=== PATIENT | female | born 2000 | race Asian ===

== ENCOUNTER 2024-05-19 14:39 | Emergency (ER) | payer OTHER, SELFPAY ==
[2024-05-19 14:53] VITALS: BP 131/91
--- NOTE | 2024-05-19 14:53 | ED.GENMED ---
ED Provider Triage
<Freda Mora PA-C - Last Filed: 05/19/24 14:57>
-
Patient seen by provider in Triage?: Seen in Triage
Attestation: A medical screening examination has been initiated by a qualified medical provider. Based on the assessment performed at this time, it has been determined that an emergent medical condition may exist and the patient has been informed
that further medical evaluation and possible additional diagnostic testing may be needed.
HPI: 24yoF here with vaginal bleeding x 8 weeks. Saw OBGYN in [place] in beginning of April and started on OCPs. Using 3-4 tampons/day. C/o generally weak and increased sleepiness.
GENERAL: Alert , in no apparent distress
EYE: No visual abnormalities.
NECK: Trachea midline
ENT: No visible abnormalities.
LUNGS: No acute respiratory distress
NEUROLOGICAL: Alert and oriented
SKIN: Skin intact. No visible changes.
MUSCULOSKELETAL: Moving extremities normally
PSYCH: Normal and appropriate interaction.
This is a medical evaluation conducted in person to initiate diagnostic evaluation and provide initial therapeutics. Please see further documentation by the treating clinician.
CBC, CMP, HCG, and pelvic ultrasound ordered.
History of Present Illness
<Freda Mora PA-C - Last Filed: 05/19/24 14:57>
General
Chief Complaint: Vaginal Bleeding
Time Seen by Provider: 05/19/24 17:06
<Sterling Freed DO - Last Filed: 05/19/24 19:40>
History of Present Illness
History of Present Illness:
TIME OF INITIAL ENCOUNTER: 5:10 PM
HPI: The patient has been having vaginal bleeding described initially as using 3-4 tampons per day over the past 2 months. She only had about 2 days where she did not bleed. About a month ago, she was placed on control by a profiler hand in
[facility] where she attends [facility] [employer]. She continues to bleed. There is some minimal abdominal cramping. She continues to feel generally weak and sleeps a lot but this is not necessarily new.
EXAM:
GENERAL: Well appearing in no distress
HEENT: Moist oral mucosa
CARDIOVASCULAR: No murmurs, normal heart rate, regular rhythm, No chest wall tenderness
PULMONARY: No respiratory distress, breath sounds are clear and equal
ABDOMEN: Soft with no peritoneal signs, no tenderness
NEUROLOGIC: Excellent strength all extremities, no coordination deficits
PSYCHIATRIC: Appropriate mental status, normal insight and judgement
EXTREMITIES: Nontender, no edema, moves all extremities equally
SKIN: No rash, no lesions
NUMBER AND COMPLEXITY OF PROBLEMS ADDRESSED AT THE ENCOUNTER
� Chronic conditions affecting care: No significant past medical history
� Acute Exacerbation and/or Progression of Chronic Illness: This is an acute problem
� Differential Diagnosis includes: Dysfunctional uterine bleeding, uterine fibroids, , anemia
AMOUNT AND/OR COMPLEXITY OF DATA TO BE REVIEWED AND ANALYZED
� I performed an independent evaluation of and my interpretation is:
EKG:
CT:
X-rays:
Laboratory Studies: White count 6.5, hemoglobin 13.1 which is improved compared to 2018, hCG negative
Other: US reviewed
� Review of other/old records: The patient was seen here in 2018 with suicidal ideation/depression
� Clinical information was obtained by an independent historian: I spoke to mother at bedside
� Prescriptions/Medications Considered but not given: The patient is already on control
� Further testing considered but not performed:
RISK OF COMPLICATIONS AND/OR MORBIDITY OR MORTALITY OF PATIENT MANAGEMENT
� Social determinants of health affecting care: Attends school in [place], visiting home currently
� Discussion with other providers:
� Escalation of care including admission/observation vs risk of discharge considered: The patient had ultrasound today. Hemoglobin today is improved compared to 2018. Vital signs are stable and she is very well-appearing.
ANY OTHER UPDATES:
No changes throughout her stay in the Emergency Department. She states that she can follow-up with her profiler hand in [place]. I gave her a copy of her ultrasound.
Phy Exam
<Sterling Freed DO - Last Filed: 05/19/24 19:40>
Physical Exam
Physical Exam:
See HPI
Course
<Freda Mora PA-C - Last Filed: 05/19/24 14:57>
Orders/Labs/Results
Orders:
Orders
05/19/24 14:56
Test Result ONCE
Pelvis & Transvaginal US [US Pelvis W Transvag Combined] Urgent
Comment:
Reason For Exam: Vaginal bleeding
05/19/24 15:01
Complete Blood Count/With Diff Urgent
Comprehensive Metabolic Panel Urgent
HCG, Serum Qualitative Screen Urgent
Abnormal Lab Results
05/19/24
15:01
Lymphocytes % 19.7 L %
(20.5-51.1)
Glucose 112 H mg/dl
(70-99)
05/19/24 15:01
05/19/24 15:01
Vital Signs
Initial and Last Documented VS:
Initial Vital Signs
Temp Pulse Resp BP Pulse Ox
37.1 C 76 16 131/91 99
05/19/24 14:53 05/19/24 14:53 05/19/24 14:53 05/19/24 14:53 05/19/24 14:53
Last Documented Vital Signs
Temp Pulse Resp BP Pulse Ox
36.4 C 76 16 131/82 99
05/19/24 18:05 05/19/24 18:05 05/19/24 18:05 05/19/24 18:05 05/19/24 18:05
<Sterling Freed DO - Last Filed: 05/19/24 19:40>
Orders/Labs/Results
Orders:
Orders
05/19/24 14:56
Test Result ONCE
Pelvis & Transvaginal US [US Pelvis W Transvag Combined] Urgent
Comment:
Reason For Exam: Vaginal bleeding
05/19/24 15:01
Complete Blood Count/With Diff Urgent
Comprehensive Metabolic Panel Urgent
HCG, Serum Qualitative Screen Urgent
Abnormal Lab Results
05/19/24
15:01
Lymphocytes % 19.7 L %
(20.5-51.1)
Glucose 112 H mg/dl
(70-99)
05/19/24 15:01
05/19/24 15:01
Vital Signs
Initial and Last Documented VS:
Initial Vital Signs
Temp Pulse Resp BP Pulse Ox
37.1 C 76 16 131/91 99
05/19/24 14:53 05/19/24 14:53 05/19/24 14:53 05/19/24 14:53 05/19/24 14:53
Last Documented Vital Signs
Temp Pulse Resp BP Pulse Ox
36.4 C 76 16 131/82 99
05/19/24 18:05 05/19/24 18:05 05/19/24 18:05 05/19/24 18:05 05/19/24 18:05
<Sterling Freed DO - Last Filed: 05/19/24 19:40>
*Critical Care Note
Total Time (30-74mins, 75-104mins- exclusive of procedures): Not Applicable
ED Attending Note
<Freda Mora PA-C - Last Filed: 05/19/24 14:57>
-
Portions of this chart may have been created with voice recognition software.� Occasional wrong word or��sound alike� substitutions may have occurred due to the inherent limitations of voice recognition software.
Discharge Plan
Departure
Patient Disposition: Home (Routine Discharge)
Date of Disposition: 05/19/24
Time of Disposition: 18:36
Patient with high blood pressure during this ER visit?: Yes
Discharge Problem:
Abnormal vaginal bleeding
Instructions: Heavy Periods (DC), BLOOD PRESSURE
Prescriptions:
No Action
No Current Medications
0
Referrals:
Denis Estrella, [Family Provider] -
Activity Restrictions/Additional Instructions:
. Hemoglobin level is normal, test is negative, other basic labs are normal. I have attached the ultrasound report:
FINDINGS:
Uterus: 8.2 x 3.4 x 4.3 cm. No focal uterine mass.
Endometrium: 7.4 mm. Mild diffuse inhomogeneity, though without focal hyper or hypoechoic abnormality.
Right ovary: 2.1 x 1.3 x 1.7 cm. Unremarkable.
Left ovary: Only seen on transabdominal approach, unremarkable, 2.4 x 2 x 1.8 cm.
Free pelvic fluid: None.
IMPRESSION:
No endometrial thickening. The endometrium measures 7.4 mm, though appears mild diffusely inhomogeneous without focal hyper or hypoechoic abnormality. No uterine mass. Unremarkable ovaries.
Follow-up with your profiler hand.
Interventions
Interventions:
*Risk Screen - Suicide Last Done: 05/19/24 14:55
*General Assessment Last Done: 05/19/24 18:05
*Neglect/Abuse Screening Last Done: 05/19/24 14:55
ED- Fall Risk Assessment Last Done: 05/19/24 18:05
*ED COVID-19 Vaccine History Last Done: 05/19/24 18:05
*Nursing Disposition Last Done: 05/19/24 19:19
ED-Female Genitourinary Assessment Last Done: 05/19/24 18:05
Discharge Date and Time
Discharge Date/Time: 05/19/24 19:19
Print Language: BELARUSIAN
[2024-05-19 15:11] LABS: % Basophils 0.6 % (0-2); % Eosinophils 2.2 % (0-6); % Immature Granulocytes 0.3 % (0-0.5); % Lymphocytes 19.7 % (20.5-51.1); % Monocytes 6.2 % (1.7-9.3); Absolute Eosinophils 0.1 10^3/uL (0-0.7); Absolute Lymphocytes 1.3 10^3/uL (1.2-3.4); Absolute Monocytes 0.4 10^3/uL (0.1-0.6); Absolute Neutrophils 4.6 10^3/uL (1.4-6.5); Hematocrit 38.6 % (37.0-47.0); Hemoglobin 13.1 g/dL (12.0-16.0); Mean Corp Hgb Conc. 33.9 g/dL (33.0-37.0); Mean Corpuscular Hgb 30.8 pg (27.0-31.0); Mean Corpuscular Volume 90.6 fL (81.0-99.0); Mean Platelet Volume 8.9 fL (7.4-10.4); Nucleated Red Blood Cells % 0 %; Platelet Count 375 10^3/uL (130-400); Red Blood Cell Count 4.26 10^6/uL (4.20-5.40); White Blood Cell Count 6.5 10^3/uL (4.8-10.8)
[2024-05-19 15:21] LABS: HCG, Serum Qualitative Screen Negative
[2024-05-19 15:25] LABS: ALT (SGPT) 18 U/L (0-35); AST (SGOT) 25 U/L (14-36); Albumin 4.6 g/dl (3.5-5.0); Alkaline Phosphatase 51 U/L (38-126); Blood Urea Nitrogen 13 mg/dl (7-17); Calcium 9.7 mg/dl (8.4-10.2); Carbon Dioxide 23 mmol/L (22-30); Chloride 103 mmol/L (98-107); Glucose 112 mg/dl (70-99); Potassium 4.1 mmol/L (3.5-5.1); Sodium 136 mmol/L (135-145); Total Bilirubin 0.7 mg/dl (0.2-1.3); Total Protein 7.6 g/dl (6.3-8.2); eGFR > 60.00
[2024-05-19 18:05] VITALS: BP 131/82; BMI 19.6
== END 2024-05-19 19:19 | disposition home or self-care (01) ==
LOC: EMR 14:39
PROVIDERS: Physician Assistant; EMERGENCY PHYSICIAN Emergency Medicine; FAMILY PHYSICIAN Family Medicine
DX: N93.9 Abnormal uterine and vaginal bleeding, unspecified (principal); R03.0 Elevated blood-pressure reading, without diagnosis of hypertension
CPT/HCPCS: 99284; 76830; 76856; 80053; 84703; 85025

== ENCOUNTER → 2025-05-17 15:57 | Outpatient (REF) | payer OTHER, SELFPAY | LOC: RAD 15:57 | PROVIDERS: ATTENDING PHYSICIAN Obstetrics & Gynecology; FAMILY PHYSICIAN Family Medicine | DX: Z30.431 Encounter for routine checking of intrauterine contraceptive device (principal) | CPT/HCPCS: 76830; 76856 ==